=== PATIENT | male | born 1940 | race Caucasian/White ===

== ENCOUNTER 2023-07-19 08:52 | Emergency (ER) | payer MEDICARE | END 2023-07-19 10:55 | disposition home or self-care (01) | LOC: JP.ED 08:52 | DX: S30.0XXA Contusion of lower back and pelvis, initial encounter (principal); J44.9 Chronic obstructive pulmonary disease, unspecified; I10 Essential (primary) hypertension; F17.210 Nicotine dependence, cigarettes, uncomplicated; Z86.73 Personal history of transient ischemic attack (TIA), and cerebral infarction without residual deficits; Z79.899 Other long term (current) drug therapy; W17.89XA Other fall from one level to another, initial encounter | CPT/HCPCS: 72192; 99283; 99284 ==